=== PATIENT | female | born 1995 | race African-American/Black ===

== ENCOUNTER 2017-08-08 15:41 | Emergency (ER) | payer MEDICAID ==
[~2017-08-08] VITALS: Ht 175.3 cm; Wt 53.0 kg
[~2017-08-08 15:41] MED LIST: AMLO10TA80 PO; LISI-186 PO; NEPVIT PO; REN400 PO
[2017-08-08 20:49] VITALS: BP 125/75
== END 2017-08-08 20:55 | disposition home or self-care (01) ==
LOC: ER 16:02
DX: S02.2XXA Fracture of nasal bones, initial encounter for closed fracture (principal); I12.0 Hypertensive chronic kidney disease with stage 5 chronic kidney disease or end stage renal disease; N28.89 Other specified disorders of kidney and ureter; F32.9 Major depressive disorder, single episode, unspecified; Y04.0XXA Assault by unarmed brawl or fight, initial encounter; Y93.89 Activity, other specified; Y99.8 Other external cause status; Y92.89 Other specified places as the place of occurrence of the external cause; Z99.2 Dependence on renal dialysis; Z88.6 Allergy status to analgesic agent
CPT/HCPCS: 70486; 81025; 99284

== ENCOUNTER 2020-05-07 10:42 | Emergency (ER) | payer MEDICARE, MEDICAID ==
[~2020-05-07] VITALS: Ht 167.6 cm; Wt 59.0 kg
[2020-05-07] MEDS ORDERED: IPRATROPIUM BROMIDE (0.02%) 0.5MG/2.5ML NEB HHN STA (10:50)
[2020-05-07] MEDS ORDERED: ALBUTEROL (0.083%) 2.5MG/3ML NEB HHN STA (10:50)
[2020-05-07] MEDS ORDERED: NITROGLYCERIN 50MG PREMIX 250 ML IV ONE (11:00)
[2020-05-07 11:10] LABS: BASOPHILS % 0.4 % (0.0-2.0); HEMATOCRIT. 27.8 % (36.0-48.0); HEMOGLOBIN. 9.2 g/dL (12.0-16.0); LYMPHOCYTES % 12.1 % (20.0-50.0); MEAN CORPUSCULAR HEMOGLOBIN 32.6 pg (28.0-32.0); MEAN CORPUSCULAR VOLUME 98.7 fL (81.0-99.0); MEAN PLATELET VOLUME 8.6 fl (7.4-10.4); MONOCYTES % 10.8 % (2.0-8.0); NEUTROPHILS % 73.7 % (40.0-76.0); PLATELET 210 x1000/uL (130-400); RED BLOOD CELL COUNT 2.82 mill/uL (4.2-5.4); RED CELL DISTRIBUTION WIDTH 18.4 % (11.6-14.6)
[2020-05-07 11:17] LABS: CHLORIDE 105 mEq/L (98-107)
[2020-05-07 11:19] LABS: PROTHROMBIN TIME 10.3 sec (9.6-11.0)
[2020-05-07 11:21] LABS: ETHANOL BLOOD < 10 mg/dL
[2020-05-07 11:29] LABS: HCG SCREEN NEGATIVE
[2020-05-07] MEDS ORDERED: CALCIUM CHLORIDE 1GM/10ML SYR IV ONE (11:45)
[2020-05-07] MEDS ORDERED: SODIUM BICARBONATE 8.4% 1 MEQ/ML 50ML SYR IV ONE (11:45)
[2020-05-07] MEDS ORDERED: DEXTROSE 50% WATER 50ML SYRINGE IV ONE (11:45)
[2020-05-07] MEDS ORDERED: MORPHINE SULFATE 4 MG/ML CPJ (NOT FOR IM USE) IV ONE (11:45)
[2020-05-07] MEDS ORDERED: ONDANSETRON HCL 4MG/2ML INJ IV ONE (11:45)
[2020-05-07] MEDS ORDERED: INSULIN REGULAR (HUMULIN R) 300UNITS/3ML IV ONE (11:45)
[2020-05-07 11:57] LABS: BG CARBOXYHEMOGLOBIN 0.4 % (0.5-1.5); BG DEOXYHEMOGLOBIN 1.1 % (0.0-5.0); BG FRACTION INSPIRED OXYGEN 50; BG HCO3 ACT 22.3 mmol/L (22.0-26.0); BG METHEMOGLOBIN 0.1 % (0.0-1.5); BG OXYGEN SATURATION 98.9 % (92.0-98.5); BG OXYHEMOGLOBIN 98.4 % (94.0-97.0); BG PO2 161.6 mmHg (75.0-100.0); BG SAMPLE SITE RIGHT RADIAL; BG TOTAL HEMOGLOBIN 8.9 g/dL (12.0-18.0); BG VENT MODE MASK - BIPAP
[2020-05-07 12:13] LABS: PHOSPHORUS 6.3 mg/dL (2.5-4.9)
[2020-05-07] MEDS ORDERED: MAGNESIUM/ALUMINUM HYDROXIDE/SIMETHICONE 30ML UDC PO PRN (12:15)
[2020-05-07] MEDS ORDERED: ONDANSETRON HCL 4MG/2ML INJ IV PRN (12:15)
[2020-05-07] MEDS ORDERED: NITROGLYCERIN 0.4MG TABLET SL SL PRN (12:15)
[2020-05-07] MEDS ORDERED: ZOLPIDEM TARTRATE 5MG TABLET PO PRN (12:15)
[2020-05-07] MEDS ORDERED: DOCUSATE SODIUM 100MG CAPSULE PO PRN (12:15)
[2020-05-07] MEDS ORDERED: CLONIDINE 0.1MG TABLET PO PRN (12:15)
[2020-05-07] MEDS ORDERED: ACETAMINOPHEN 325MG TABLET PO PRN ×2 (12:15)
[2020-05-07] MEDS ORDERED: TRAMADOL 50MG TABLET PO PRN (12:15)
[2020-05-07] MEDS ORDERED: MINOXIDIL 10MG TABLET PO SCH (12:15)
[2020-05-07] MEDS ORDERED: LORAZEPAM 0.5MG TABLET PO PRN (12:15)
[2020-05-07] MEDS ORDERED: FUROSEMIDE 100MG/10ML VIAL IVP NR (12:15)
[2020-05-07] MEDS ORDERED: GUAIFENESIN 200MG/10ML SUGAR FREE UDC PO PRN (12:15)
[2020-05-07] MEDS ORDERED: IPRATROPIUM/ALBUTEROL 0.5-3(2.5)MG/3ML NEB NEB PRN (12:15)
[2020-05-07] MEDS ORDERED: DIPHENHYDRAMINE 50MG/ML VIAL IV PRN (12:15)
[2020-05-07] MEDS: CLONIDINE 0.3MG TABLET PO SCH ×2 (13:00→18:00)
[2020-05-07] MEDS ORDERED: FAMOTIDINE 20MG TABLET PO SCH (13:00)
[2020-05-07] MEDS ORDERED: AMLODIPINE 10MG TABLET PO SCH ×2 (13:00→15:00)
[2020-05-07] MEDS: SEVELAMER CARBONATE 800 MG TABLET PO SCH ×2 (13:00→17:00)
[2020-05-07] MEDS ORDERED: HYDRALAZINE HCL 50MG TABLET PO SCH ×2 (14:00→17:00)
[2020-05-07] MEDS ORDERED: LEVOFLOXACIN 500MG PREMIX 100 ML IV ONE (14:00)
[2020-05-07] MEDS ORDERED: SODIUM POLYSTYRENE SULFONATE 15 G/60 ML BOT PO NR (14:00)
[2020-05-07] MEDS ORDERED: LOSARTAN POTASSIUM 50 MG TABLET PO SCH (15:00)
[2020-05-07] MEDS ORDERED: CALCIUM ACETATE 667MG CAPSULE PO SCH (17:00)
[2020-05-07] MEDS ORDERED: BUTALBITAL/ACETAMINOPHEN/CAFFEINE 50/325/40MG TABLET PO PRN (19:00)
[2020-05-07 20:57] VITALS: BP 171/86
[2020-05-07] MEDS ORDERED: LABETALOL HCL 200MG TABLET PO SCH (21:00)
== END 2020-05-07 21:38 | disposition left against medical advice (07) ==
LOC: ER 10:55 → SUPCPDRO 12:08 → ER 21:38 → CANBEDREQ 23:38
DX: I12.9 Hypertensive chronic kidney disease with stage 1 through stage 4 chronic kidney disease, or unspecified chronic kidney disease (principal); E11.22 Type 2 diabetes mellitus with diabetic chronic kidney disease; N18.9 Chronic kidney disease, unspecified; I16.0 Hypertensive urgency; J96.01 Acute respiratory failure with hypoxia; Z88.6 Allergy status to analgesic agent; Z79.899 Other long term (current) drug therapy; Z98.890 Other specified postprocedural states; Z91.19 Patient's noncompliance with other medical treatment and regimen
CPT/HCPCS: 36415; 36600; 71045; 80053; 80061; 80320; 82375; 82805; 83036; 83605; 83690; 83735; 84100; 84145; 84484; 84703; 85025; 85610; 87040; 93005; 93970; 94640; 94660; 96365; 96375; 99285; J1815; J1940; J1956; J2270; J2405; J3490; G0480